=== PATIENT | female | born 1975 | race Caucasian/White ===

== ENCOUNTER 2017-06-27 15:34 | Emergency (ER) | payer OTHER ==
[~2017-06-27] VITALS: Ht 162.6 cm; Wt 63.5 kg
[2017-06-27] MEDS ORDERED: MELATONIN3 MG PO (15:41)
[2017-06-27 16:09] LABS: ABSOLUTE BASOPHILS 0.1 thou/uL (0.0-0.2); ABSOLUTE EOSINOPHILS 0.1 thou/uL (0.0-0.7); ABSOLUTE LYMPHOCYTES 3.2 thou/uL (0.8-5.3); ABSOLUTE MONOCYTES 1.3 thou/uL (0.0-1.2); ABSOLUTE NEUTROPHILS 6.3 thou/uL (1.6-8.1); BASOPHILS 0.8 %; EOSINOPHILS 0.5 %; HEMATOCRIT 47.7 % (37.0-47.0); HEMOGLOBIN 16.4 gm/dL (12.0-15.0); LYMPHOCYTES 29.1 %; MCH 32.9 pg (26.0-34.0); MCHC 34.5 g/dL (28.0-37.0); MCV 95.4 fL (80.0-100.0); MONOCYTES 11.8 %; MPV 8.8 fl. (7.2-11.1); NUCLEATED RBCS 0 /100WBC; PLATELET COUNT* 268 thou/uL (150-400); POLYS 57.8 %; RDW-CV 12.4 % (10.5-14.5); WBC 10.9 thou/uL (4.0-11.0)
[2017-06-27 16:26] LABS: CALCIUM 9.3 mg/dL (8.5-10.1); POTASSIUM 3.7 mmol/L (3.5-5.1)
[2017-06-27 16:31] LABS: ALBUMIN 4.3 g/dL (3.4-5.0); TOTAL BILIRUBIN 0.5 mg/dL (<0.1-1.0); TOTAL PROTEIN 8.3 g/dL (6.4-8.2)
[2017-06-27 17:37] LABS: URINE BLOOD TRACE (Negative); URINE CLARITY CLEAR; URINE COLOR YELLOW; URINE GLUCOSE-RANDOM NEGATIVE (Negative); URINE KETONES 2+ (Negative); URINE LEUKOCYTES-REFLEX NEGATIVE (Negative); URINE NITRITE-REFLEX NEGATIVE (Negative); URINE PROTEIN NEGATIVE (Negative); URINE UROBILINOGEN 0.2 E.U./dl (0.2-1.0)
[2017-06-27 17:42] LABS: ICTOTEST (BILI CONFIRMATORY) Negative (Negative); URINE BILIRUBIN 1+ (Negative)
[2017-06-27] MEDS ORDERED: ZOFRAN ODT4 MG PO (18:25)
[2017-06-27] MEDS ORDERED: VISTARIL50 MG PO (18:26)
[2017-06-27 18:44] VITALS: BP 118/84
== END 2017-06-27 18:46 | disposition home or self-care (01) ==
LOC: M.ERS 15:34
PROVIDERS: Nurse Practitioner Family
DX: R11.2 Nausea with vomiting, unspecified (principal); F17.200 Nicotine dependence, unspecified, uncomplicated; Z88.5 Allergy status to narcotic agent; Z88.6 Allergy status to analgesic agent

== ENCOUNTER 2017-08-12 17:21 | Emergency (ER) | payer OTHER ==
[~2017-08-12] VITALS: Ht 162.6 cm; Wt 68.5 kg
[~2017-08-12 17:21] MED LIST: MELATONIN3 MG PO; VISTARIL50 MG PO; ZOFRAN ODT4 MG PO
[2017-08-12 18:09] LABS: INFLUENZA A ANTIGEN None Detected (None Detect); INFLUENZA B ANTIGEN None Detected (None Detect)
[2017-08-12] MEDS ORDERED: PROAIR HFA8.5 GM INH (18:12)
[2017-08-12] MEDS ORDERED: ZPAK PO (18:12)
[2017-08-12] MEDS ORDERED: DIFLUCAN150 MG PO (18:17)
[2017-08-12 18:22] VITALS: BP 120/83
== END 2017-08-12 18:22 | disposition home or self-care (01) ==
LOC: M.ERS 17:21
PROVIDERS: Nurse Practitioner Family
DX: J06.9 Acute upper respiratory infection, unspecified (principal); F17.200 Nicotine dependence, unspecified, uncomplicated; Z88.5 Allergy status to narcotic agent; Z88.6 Allergy status to analgesic agent

== ENCOUNTER 2019-08-11 13:38 | Emergency (ER) | payer OTHER ==
[~2019-08-11] VITALS: Ht 162.6 cm; Wt 63.5 kg
[~2019-08-11 13:38] MED LIST changes: +DIFLUCAN150 MG PO; +PROAIR HFA8.5 GM INH; +ZPAK PO
[2019-08-11 15:14] LABS: INFLUENZA A ANTIGEN Negative (Negative); INFLUENZA B ANTIGEN Negative (Negative)
[2019-08-11] MEDS ORDERED: TESSALON PERLE100 MG PO (15:19)
[2019-08-11] MEDS ORDERED: PROMETH-CODEIN 65 ML PO (15:19)
[2019-08-11] MEDS ORDERED: MEDROLDOSEPACK PO (15:19)
[2019-08-11] MEDS ORDERED: ZPAK PO (15:19)
[2019-08-11 15:38] VITALS: BP 102/84
== END 2019-08-11 15:39 | disposition home or self-care (01) ==
LOC: M.ERS 13:38
PROVIDERS: Physician Assistant
DX: J18.8 Other pneumonia, unspecified organism (principal); Z88.5 Allergy status to narcotic agent; Z88.8 Allergy status to other drugs, medicaments and biological substances

== ENCOUNTER 2019-09-28 13:31 | Emergency (ER) | payer OTHER ==
[~2019-09-28] VITALS: Ht 162.6 cm; Wt 59.0 kg
[~2019-09-28 13:31] MED LIST changes: +MEDROLDOSEPACK PO; +PROMETH-CODEIN 65 ML PO; +TESSALON PERLE100 MG PO
[2019-09-28 14:28] LABS: ABSOLUTE BASOPHILS 0.1 thou/uL (0.0-0.2); ABSOLUTE EOSINOPHILS 0.1 thou/uL (0.0-0.7); ABSOLUTE LYMPHOCYTES 2.8 thou/uL (0.8-5.3); ABSOLUTE MONOCYTES 0.8 thou/uL (0.0-1.2); ABSOLUTE NEUTROPHILS 5.5 thou/uL (1.6-8.1); BASOPHILS 0.7 %; EOSINOPHILS 0.9 %; HEMATOCRIT 40.1 % (37.0-47.0); HEMOGLOBIN 13.9 gm/dL (12.0-15.0); LYMPHOCYTES 30.3 %; MCH 32.1 pg (26.0-34.0); MCHC 34.6 g/dL (28.0-37.0); MCV 92.7 fL (80.0-100.0); MONOCYTES 8.8 %; MPV 8.8 fl. (7.2-11.1); NUCLEATED RBCS 0 /100WBC; PLATELET COUNT* 242 thou/uL (150-400); POLYS 59.3 %; RBC 4.33 mil/uL (4.20-5.00); RDW-CV 12.2 % (10.5-14.5); WBC 9.2 thou/uL (4.0-11.0)
[2019-09-28 14:41] LABS: CALCIUM 8.3 mg/dL (8.5-10.1); CREATININE 0.9 mg/dL (0.6-1.3); POTASSIUM 3.8 mmol/L (3.5-5.1)
[2019-09-28 14:52] LABS: ALBUMIN 3.8 g/dL (3.4-5.0); TOTAL BILIRUBIN 0.2 mg/dL (<0.1-1.0); TOTAL PROTEIN 6.9 g/dL (6.4-8.2)
[2019-09-28] MEDS ORDERED: DOXYCYCLINE 10100 MG PO (16:56)
[2019-09-28] MEDS ORDERED: PREDNISONE 10 M10 MG PO (16:56)
[2019-09-28] MEDS ORDERED: VENTOLIN HFA 1818 GM INH (16:56)
[2019-09-28] MEDS ORDERED: DIFLUCAN150 M1 PO (17:08)
[2019-09-28 17:17] VITALS: BP 104/63
--- NOTE | 2019-09-29 17:29 | EKG ---
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
== END 2019-09-28 17:08 | disposition home or self-care (01) ==
LOC: M.ERS 13:31
PROVIDERS: Nurse Practitioner Family
DX: J20.9 Acute bronchitis, unspecified (principal); Z88.6 Allergy status to analgesic agent; Z88.8 Allergy status to other drugs, medicaments and biological substances

== ENCOUNTER 2021-02-07 18:56 | Emergency (ER) | payer OTHER ==
[~2021-02-07] VITALS: Ht 162.6 cm; Wt 56.7 kg
[~2021-02-07 18:56] MED LIST changes: +DIFLUCAN150 M1 PO; +DOXYCYCLINE 10100 MG PO; +PREDNISONE 10 M10 MG PO; +VENTOLIN HFA 1818 GM INH
[2021-02-07 19:09] VITALS: BP 132/97
[2021-02-07 20:00] LABS: URINE BILIRUBIN NEGATIVE (Negative); URINE BLOOD NEGATIVE (Negative); URINE CLARITY CLEAR; URINE COLOR YELLOW; URINE GLUCOSE-RANDOM NEGATIVE (Negative); URINE KETONES NEGATIVE (Negative); URINE LEUKOCYTES-REFLEX NEGATIVE (Negative); URINE NITRITE-REFLEX NEGATIVE (Negative); URINE PROTEIN NEGATIVE (Negative); URINE SPECIFIC GRAVITY <= 1.005 (1.005-1.030); URINE UROBILINOGEN 0.2 E.U./dl (0.2-1.0)
[2021-02-07 20:30] LABS: AMP/METHAMP Negative (Negative); BARBITURATES Negative (Negative); BENZODIAZEPINES Negative (Negative); COCAINE Negative (Negative); METHADONE Negative (Negative); OPIATES Negative (Negative); PCP Negative (Negative); THC POSITIVE (Negative)
[2021-02-07 21:09] LABS: ABSOLUTE BASOPHILS 0.1 thou/uL (0.0-0.2); ABSOLUTE EOSINOPHILS 0.1 thou/uL (0.0-0.7); ABSOLUTE LYMPHOCYTES 3.3 thou/uL (0.8-5.3); ABSOLUTE NEUTROPHILS 7.2 thou/uL (1.6-8.1); BASOPHILS 0.7 %; EOSINOPHILS 0.7 %; HEMATOCRIT 41.8 % (37.0-47.0); HEMOGLOBIN 14.1 gm/dL (12.0-15.0); LYMPHOCYTES 28.3 %; MCH 30.9 pg (26.0-34.0); MCHC 33.7 g/dL (28.0-37.0); MCV 91.7 fL (80.0-100.0); MONOCYTES 8.4 %; MPV 8.2 fl. (7.2-11.1); NUCLEATED RBCS 0 /100WBC; PLATELET COUNT* 300 thou/uL (150-400); POLYS 61.9 %; RBC 4.55 mil/uL (4.20-5.00); RDW-CV 12.5 % (10.5-14.5); WBC 11.6 thou/uL (4.0-11.0)
[2021-02-07 21:12] LABS: CALCIUM 9.2 mg/dL (8.5-10.1); CREATININE 0.9 mg/dL (0.6-1.3); POTASSIUM 3.6 mmol/L (3.5-5.1)
[2021-02-07 21:17] LABS: ALBUMIN 4.7 g/dL (3.4-5.0); TOTAL BILIRUBIN 0.4 mg/dL (<0.1-1.0); TOTAL PROTEIN 7.9 g/dL (6.4-8.2)
[2021-02-07] MEDS ORDERED: FLEXERIL PO ×2 (21:51→21:56)
[2021-02-07] MEDS ORDERED: MEDROLDOSEPACK PO ×2 (21:51→21:56)
[2021-02-07] MEDS ORDERED: APAP W/CODEINE1 TA2 PO ×2 (21:51→21:56)
== END 2021-02-07 21:58 | disposition home or self-care (01) ==
LOC: M.ERS 18:56
PROVIDERS: Emergency Medicine; Physician Assistant
DX: R10.811 Right upper quadrant abdominal tenderness (principal); Z98.890 Other specified postprocedural states; Z88.5 Allergy status to narcotic agent

== ENCOUNTER 2021-03-03 14:18 | Emergency (ER) | payer OTHER ==
[~2021-03-03] VITALS: Ht 162.6 cm; Wt 58.5 kg
[~2021-03-03 14:18] MED LIST changes: +APAP W/CODEINE1 TA2 PO; +FLEXERIL PO
[2021-03-03 15:33] LABS: ABSOLUTE EOSINOPHILS 0.1 thou/uL (0.0-0.7); ABSOLUTE LYMPHOCYTES 2.6 thou/uL (0.8-5.3); ABSOLUTE MONOCYTES 0.7 thou/uL (0.0-1.2); ABSOLUTE NEUTROPHILS 6.6 thou/uL (1.6-8.1); BASOPHILS 0.4 %; EOSINOPHILS 1.1 %; HEMATOCRIT 44.3 % (37.0-47.0); HEMOGLOBIN 14.9 gm/dL (12.0-15.0); LYMPHOCYTES 26.3 %; MCH 31.5 pg (26.0-34.0); MCHC 33.5 g/dL (28.0-37.0); MCV 94.1 fL (80.0-100.0); MONOCYTES 7.2 %; MPV 8.4 fl. (7.2-11.1); NUCLEATED RBCS 0 /100WBC; PLATELET COUNT* 264 thou/uL (150-400); RBC 4.71 mil/uL (4.20-5.00); RDW-CV 12.4 % (10.5-14.5); WBC 10.1 thou/uL (4.0-11.0)
[2021-03-03 15:35] LABS: URINE BILIRUBIN NEGATIVE (Negative); URINE BLOOD NEGATIVE (Negative); URINE CLARITY CLEAR; URINE COLOR YELLOW; URINE GLUCOSE-RANDOM NEGATIVE (Negative); URINE KETONES TRACE (Negative); URINE LEUKOCYTES NEGATIVE (Negative); URINE NITRITE NEGATIVE (Negative); URINE PROTEIN NEGATIVE (Negative); URINE UROBILINOGEN 0.2 E.U./dl (0.2-1.0)
[2021-03-03 15:49] LABS: CREATININE 0.9 mg/dL (0.6-1.3); POTASSIUM 3.8 mmol/L (3.5-5.1)
[2021-03-03 15:54] LABS: ALBUMIN 4.3 g/dL (3.4-5.0); TOTAL BILIRUBIN 0.6 mg/dL (<0.1-1.0); TOTAL PROTEIN 7.7 g/dL (6.4-8.2)
[2021-03-03] MEDS ORDERED: DIAZEPAM 5 MG5 MG PO (17:46)
[2021-03-03] MEDS ORDERED: NORCO5 PO (17:46)
[2021-03-03 17:56] VITALS: BP 122/84
== END 2021-03-03 17:57 | disposition home or self-care (01) ==
LOC: M.ERS 14:18
PROVIDERS: Physician Assistant
DX: K59.00 Constipation, unspecified (principal); Z98.890 Other specified postprocedural states; Z88.5 Allergy status to narcotic agent; Z88.8 Allergy status to other drugs, medicaments and biological substances; Z87.891 Personal history of nicotine dependence